=== PATIENT | male | born 1975 | race Caucasian/White ===

== ENCOUNTER 2017-08-25 08:47 | Inpatient (IN) | payer BC ==
[~2017-08-25] VITALS: Ht 175.3 cm; Wt 83.6 kg
[~2017-08-25 08:47] MED LIST: AMLO10TA4 PO; AMLO5TAB2 PO; Hydralazine Hcl PO; LABE100T28 PO; LISI10TA PO; LORA-434 PO; SIMV10TA PO
--- NOTE | 2017-08-25 09:11 | PHYS DOC ---
Past Medical History Past Medical History: Hypertension Past Surgical History: Other Additional Past Surgical Histo: LT HAND Alcohol Use: Heavy Additional Information: 7-8 beers daily Drug Use: None Adult General Chief Complaint Chief Complaint: Palpitations HPI HPI Patient is a 42 year old male who presents with a history and sedation that he can feel his heart beating. He states heart rate ranges from 80s to 90s, no pain , he's had some cough with posttussive emesis. Patient reports he "drinks too much" and that he is a daily drinker. No fevers reported, no abdominal pain, chest pain or shortness of breath. Patient has a history of hypertension any takes medications, his PCP is Dr. Christianson Review of Systems Review of Systems Constitutional: Denies fever or chills [] Eyes: Denies change in visual acuity, redness, or eye pain [] HENT: Denies nasal congestion or sore throat [] Respiratory: Denies shortness of breath [] Cardiovascular: No additional information not addressed in HPI [] GI: Denies abdominal pain, bloody stools or diarrhea [] : Denies dysuria or hematuria [] Musculoskeletal: Denies back pain or joint pain [] Integument: Denies rash or skin lesions [] Neurologic: Denies headache, focal weakness or sensory changes [] Current Medications Current Medications Current Medications Medications (Trade) Dose Ordered Sig/Lance Start Time Stop Time Status Last Admin Dose Admin Dextrose/Sodium Chloride 1,000 ml @ 1,000 mls/hr 1X ONCE 08/25/17 10:30 08/25/17 11:29 08/25/17 10:46 1,000 MLS/HR Diazepam (Valium) 5 mg 1X ONCE 08/25/17 10:30 08/25/17 10:31 DC 08/25/17 10:45 5 MG Ondansetron HCl (Zofran) 4 mg 1X ONCE 08/25/17 10:30 08/25/17 10:31 DC 08/25/17 10:45 4 MG Sodium Chloride 1,000 ml @ 1,000 mls/hr 1X ONCE 08/25/17 09:30 08/25/17 10:29 DC 08/25/17 09:18 1,000 MLS/HR Thiamine HCl 100 mg/Sodium Chloride 51 ml @ 102 mls/hr DAILY 08/25/17 11:00 08/25/17 10:46 102 MLS/HR Allergies Allergies Allergies Coded Allergies Type Severity Reaction Last Updated Verified No Known Drug Allergies 03/11/15 No Physical Exam Physical Exam Constitutional: Well developed, well nourished, no acute distress, non-toxic appearance. appears sunburned HENT: Normocephalic, atraumatic, bilateral external ears normal, oropharynx moist, no oral exudates, nose normal. [] Eyes: PERRLA, EOMI, conjunctiva normal, no discharge. [] Neck: Normal range of motion, no tenderness, supple, no stridor. [] Cardiovascular:Heart rate regular with regular rhythm, no murmur [] Lungs & Thorax: Bilateral breath sounds clear to auscultation [] Abdomen: Bowel sounds normal, soft, no tenderness, no masses, no pulsatile masses. [] Skin: Warm, dry, no erythema, no rash. [] Back: No tenderness, no CVA tenderness. [] Extremities: No tenderness, no cyanosis, no clubbing, ROM intact, no edema. [] Neurologic: Alert and oriented X 3, normal motor function, normal sensory function, no focal deficits noted. [] Current Patient Data Vital Signs Vital Signs Date Time Temp Pulse Resp B/P (MAP) Pulse Ox O2 Delivery O2 Flow Rate FiO2 08/25/17 10:45 83 17 129/76 (93) 97 08/25/17 10:15 Room Air 08/25/17 08:55 98.1 98.1 Lab Values Laboratory Tests Test 08/25/17 09:00 08/25/17 10:06 White Blood Count 10.2 x10^3/uL (4.0-11.0) Red Blood Count 4.78 x10^6/uL (4.30-5.70) Hemoglobin 15.6 g/dL (13.0-17.5) Hematocrit 44.8 % (39.0-53.0) Mean Corpuscular Volume 94 fL (79-100) Mean Corpuscular Hemoglobin 33 pg (25-35) Mean Corpuscular Hemoglobin Concent 35 g/dL (31-37) Red Cell Distribution Width 13.3 % (11.5-14.5) Platelet Count 285 x10^3/uL (140-400) Neutrophils (%) (Auto) 75 % (31-73) H Lymphocytes (%) (Auto) 10 % (24-48) L Monocytes (%) (Auto) 13 % (0-9) H Eosinophils (%) (Auto) 1 % (0-3) Basophils (%) (Auto) 1 % (0-3) Neutrophils # (Auto) 7.6 x10^3uL (1.8-7.7) Lymphocytes # (Auto) 1.1 x10^3/uL (1.0-4.8) Monocytes # (Auto) 1.3 x10^3/uL (0.0-1.1) H Eosinophils # (Auto) 0.1 x10^3/uL (0.0-0.7) Basophils # (Auto) 0.1 x10^3/uL (0.0-0.2) Sodium Level 128 mmol/L (136-145) L Potassium Level 4.4 mmol/L (3.5-5.1) Chloride Level 87 mmol/L (98-107) L Carbon Dioxide Level 19 mmol/L (21-32) L Anion Gap 22 (6-14) H Blood Urea Nitrogen 21 mg/dL (8-26) Creatinine 1.0 mg/dL (0.7-1.3) Estimated GFR (Cockcroft-Gault) 81.9 BUN/Creatinine Ratio 21 (6-20) H Glucose Level 105 mg/dL (70-99) H Calcium Level 9.7 mg/dL (8.5-10.1) Total Bilirubin 1.5 mg/dL (0.2-1.0) H Aspartate Amino Transferase (AST) 174 U/L (15-37) H Alanine Aminotransferase (ALT) 113 U/L (16-63) H Alkaline Phosphatase 82 U/L (46-116) Creatine Kinase 394 U/L (39-308) H Total Protein 9.6 g/dL (6.4-8.2) H Albumin 4.6 g/dL (3.4-5.0) Albumin/Globulin Ratio 0.9 (1.0-1.7) L Urine Collection Type Unknown Urine Color Ginger Urine Clarity Clear Urine pH 6.0 Urine Specific [place] 1.020 Urine Protein Negative mg/dL (NEG-TRACE) Urine Glucose (UA) Negative mg/dL (NEG) Urine Ketones (Stick) >=80 mg/dL (NEG) Urine Blood Negative (NEG) Urine Nitrite Negative (NEG) Urine Bilirubin Small (NEG) Urine Urobilinogen Dipstick 1.0 mg/dL (0.2 mg/dL) Urine Leukocyte Esterase Negative (NEG) Urine RBC 0 /HPF (0-2) Urine WBC Occ /HPF (0-4) Urine Bacteria 0 /HPF (0-FEW) Urine Hyaline Casts Moderate /HPF Urine Mucus Mod /LPF Laboratory Tests 08/25/17 09:00 Laboratory Tests 08/25/17 09:00 EKG EKG 71 beats a minute, sinus, normal axis, normal intervals, no ST elevation or depression, nonischemic T waves, interpreted by me[] Radiology/Procedures Radiology/Procedures Chest x-ray: Indication chest discomfort. PA and lateral views of the chest were obtained and are compared to an examination 03/11/2015. The heart, pulmonary vessels and mediastinum appear normal. The lungs are clear. There is unchanged elevation of the right hemidiaphragm. There has not been a significant appearance of the chest compared to the previous exam. IMPRESSION: No acute or focal process. No significant change Course & Med Decision Making Course & Med Decision Making Pertinent Labs and Imaging studies reviewed. (See chart for details) Patient was given IV fluids, EKG, labs and urinalysis ordered along with chest x -ray. His chemistries consistent with possible AKA, urinalysis pending. A second liter of fluids given D5 normal saline Pt's urine with significant ketones, anion gap, low bicarb, all consistent with AKA. contacted Dr. phelan, accepted for admission for ongoing treatment and monitoring. Placed withdraw prevention orders Dragon Disclaimer Dragon Disclaimer This electronic medical record was generated, in whole or in part, using a voice recognition dictation system. Departure Departure Impression: Primary Impression: Alcoholic ketoacidosis Additional Impressions: Hyponatremia Alcohol abuse Disposition: ADMITTED INPATIENT Admitting Physician: Jo-Ann Phelan Condition: GUARDED Referrals: NO PCP (PCP) Problem Qualifiers PB VÁZQUEZ MD Aug 25, 2017 09:11
--- NOTE | 2017-08-25 09:18 | EKG ---
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
[2017-08-25 09:21] LABS: BASO # 0.1 x10^3/uL (0.0-0.2); BASO % 1 % (0-3); EOS % 1 % (0-3); HEMATOCRIT 44.8 % (39.0-53.0); HEMOGLOBIN 15.6 g/dL (13.0-17.5); LYMPH # 1.1 x10^3/uL (1.0-4.8); LYMPH % 10 % (24-48); MEAN CORPUSCULAR HEMOGLOBIN 33 pg (25-35); MEAN CORPUSCULAR HGB CONC 35 g/dL (31-37); MEAN CORPUSCULAR VOLUME 94 fL (79-100); MONO % 13 % (0-9); NEUT % 75 % (31-73); PLATELET COUNT 285 x10^3/uL (140-400); RED BLOOD COUNT 4.78 x10^6/uL (4.30-5.70); RED CELL DISTRIBUTION WIDTH 13.3 % (11.5-14.5); WHITE BLOOD COUNT 10.2 x10^3/uL (4.0-11.0)
[2017-08-25 09:25] LABS: CALCIUM 9.7 mg/dL (8.5-10.1); GFR 81.9; POTASSIUM 4.4 mmol/L (3.5-5.1)
--- NOTE | 2017-08-25 09:26 | RAD ---
Indication chest discomfort. PA and lateral views of the chest were obtained and are compared to an examination 03/11/2015. The heart, pulmonary vessels and mediastinum appear normal. The lungs are clear. There is unchanged elevation of the right hemidiaphragm. There has not been a significant appearance of the chest compared to the previous exam. IMPRESSION: No acute or focal process. No significant change
[2017-08-25] MEDS ORDERED: IV NORMAL SALINE 1000ML BAG 1,000 ML IV ONE (09:30)
[2017-08-25 09:31] LABS: ALBUMIN 4.6 g/dL (3.4-5.0); ALBUMIN/GLOBULIN RATIO 0.9 (1.0-1.7); TOTAL BILIRUBIN 1.5 mg/dL (0.2-1.0); TOTAL PROTEIN 9.6 g/dL (6.4-8.2)
[2017-08-25] MEDS ORDERED: IV DEXTROSE 5% - 0.9 % NACL 1,000 ML IV ONE (10:30)
[2017-08-25] MEDS ORDERED: ONDANSETRON PF 4 MG/2 ML VIAL. IV ONE (10:30)
[2017-08-25 10:33] LABS: BILIRUBIN,URINE SMALL (NEG); GLUCOSE,URINE NEGATIVE (NEG); NITRITE,URINE NEGATIVE (NEG); PROTEIN,URINE NEGATIVE (NEG-TRACE)
[2017-08-25 10:59] LABS: BACTERIA,URINE 0 /HPF (0-FEW); RBC,URINE 0 /HPF (0-2); WBC,URINE OCC /HPF (0-4)
[2017-08-25] MEDS ORDERED: THIAMINE 100 MG in IV NORMAL SALINE 50ML 50 ML IV SCH (11:00)
[2017-08-25] MEDS ORDERED: LORazepam 1 MG TABLET PO SCH (11:30)
[2017-08-25] MEDS ORDERED: ONDANSETRON PF 4 MG/2 ML VIAL. IV PRN (11:30)
[2017-08-25 13:30] VITALS: BP 142/90
[2017-08-25] MEDS ORDERED: CARV6.252 PO (14:18)
[2017-08-25 15:02] VITALS: BP 138/83
[2017-08-25] MEDS ORDERED: MULTIVIT INFUSN,ADULT 4,VIT K 10 ML, THIAMINE 100 MG, FOLIC ACID 1 MG in IV NORMAL SALI... IV ONE (15:45)
[2017-08-25] MEDS ORDERED: LORazepam 1 MG TABLET PO PRN (15:45)
[2017-08-25] MEDS: amLODIPine BESYLATE 10 MG TABLET PO SCH (16:33)
[2017-08-25] MEDS: LISINOPRIL 10 MG TABLET PO SCH (16:34)
[2017-08-25] MEDS: CARVEDILOL 6.25 MG TABLET. PO SCH (16:34)
--- NOTE | 2017-08-25 16:35 | PDOC1 ---
History and Physical Date of Admission Date of Admission DATE: 08/25/17 TIME: 16:29 Source Source: Chart review, Patient History of Present Illness History of Present Illness Mr. Belcher is a 42 year old male admit with nausea, vomiting 2 days and diarhea. He reports heavy EtOH use. 6 beers/day plus liquor, but it seems like more when talking to him. He feels dependent, and has symptoms whe he is not able to get EtOH, he has recent nausea, and has vomited, diarrhea lst night Today, he feels dry, skin dry and has leg cramps. he wants to cut down ETOH use, and feels he drinks too much, asked for help to get sober PCP is Dr. Christianson Past Medical History Cardiovascular: HTN Pulmonary: No pertinent hx GI: No pertinent hx Heme/Onc: No pertinent hx Hepatobiliary: No pertinent hx Psych: No pertinent hx Musculoskeletal: No pain Rheumatologic: No pertinent hx Infectious disease: No pertinent hx Renal/: No pertinent hx Endocrine: No pertinent hx Past Surgical History Past Surgical History: Other Family History Family History: Alcohol Abuse, Heart Disease Social History ALCOHOL: heavy Drugs: None Current Problem List Problem List Problems Medical Problems: (1) Alcohol abuse Status: Acute (2) Alcoholic ketoacidosis Status: Acute Problems: Current Medications Current Medications Current Medications Sodium Chloride 1,000 ml @ 1,000 mls/hr 1X ONCE IV Last administered on 08/25 09:18; Start 08/25/17 at 09:30; Stop 08/25/17 at 10:29; Status DC Dextrose/Sodium Chloride 1,000 ml @ 1,000 mls/hr 1X ONCE IV Last administered on 08/25/17 10:46; Start 08/25/17 at 10:30; Stop 08/25/17 at 11 :29; Status DC Thiamine HCl 100 mg/Sodium Chloride 51 ml @ 102 mls/hr DAILY IV Last administered on 08/25/17 10:46; Start 08/25/17 at 11:00; Stop 08/25/17 at 15 :46; Status DC Diazepam (Valium) 5 mg 1X ONCE IV Last administered on 08/25/17 10:45; Start 08/25/17 at 10:30; Stop 08/25/17 at 10:31; Status DC Ondansetron HCl (Zofran) 4 mg 1X ONCE IV Last administered on 08/25/17 10:45 ; Start 08/25/17 at 10:30; Stop 08/25/17 at 10:31; Status DC Ondansetron HCl (Zofran) 4 mg PRN Q8HRS PRN IV NAUSEA/VOMITING; Start at 11:30; Stop 08/26/17 at 11:29 Multivitamins 10 ml/Thiamine HCl 100 mg/Folic Acid 1 mg/Sodium Chloride 1,011.2 ml @ 100 mls/ hr DAILY IV ; Start 08/26/17 at 09:00; Stop 08/31/17 at 08:59 Lorazepam (Ativan) 2 mg Q6H PO ; Start 08/25/17 at 11:30; Stop 08/25/17 at 16: 06; Status DC Multivitamins 10 ml/Thiamine HCl 100 mg/Folic Acid 1 mg/Sodium Chloride 1,011.2 ml @ 100 mls/ hr 1X ONCE IV Last administered on 08/25/17 16:27; Start 10/01 at 15:45; Stop 08/26/17 at 01:51 Lorazepam (Ativan) 2 mg PRN Q1HR PRN IV For CIWA 8-14; Start 08/25/17 at 15:45 Lorazepam (Ativan) 4 mg PRN Q1HR PRN IV For CIWA 15 or greater; Start at 15:45 Amlodipine Besylate (Norvasc) 10 mg DAILY PO ; Start 08/25/17 at 16:00 Carvedilol (Coreg) 3.125 mg BIDWMEALS PO ; Start 08/25/17 at 17:00 Labetalol HCl (Trandate) 300 mg BID PO ; Start 08/25/17 at 21:00 Lisinopril (Prinivil) 40 mg DAILY PO ; Start 08/25/17 at 16:00 Lorazepam (Ativan) 2 mg PRN Q6HRS PRN PO ANXIETY / AGITATION Last administered on 08/25/17 16:28; Start 08/25/17 at 15:45 Simvastatin (Zocor) 10 mg QHS PO ; Start 08/25/17 at 21:00 Hydralazine HCl (Apresoline) 50 mg BID PO ; Start 08/25/17 at 21:00 Lorazepam (Ativan) 1 mg BID PO ; Start 08/25/17 at 21:00 Lorazepam (Ativan) 2 mg PRN Q4HRS PRN IV ANXIETY / AGITATION; Start 08/25/17 at 16:00 Lorazepam (Ativan) 2 mg 1X ONCE IV ; Start 08/25/17 at 16:00; Stop 08/25/17 at 16:06; Status DC Active Scripts Active Zocor (Simvastatin) 10 Mg Tablet 10 Mg PO QHS Ativan (Lorazepam) 1 Mg Tablet 2 Mg PO PRN Q6HRS PRN Prinivil (Lisinopril) 10 Mg Tablet 40 Mg PO DAILY Trandate (Labetalol Hcl) 100 Mg Tablet 300 Mg PO BID [Hydralazine Hcl] 50 MG Tablet 50 Mg PO BID Norvasc (Amlodipine Besylate) 10 Mg Tablet 10 Mg PO DAILY Reported Carvedilol 6.25 Mg Tablet 0.5 Tab PO BID Allergies Allergies: Coded Allergies: No Known Drug Allergies (Unverified , 03/11/15) ROS General: No: Chills, Night Sweats, Fatigue, Malaise, Appetite, Other PSYCHOLOGICAL ROS: YES: Anxiety, Sleep disturbances, No: Behavioral Disorder, Concentration difficultie, Decreased libido, Depression, Disorientation, Hallucinations, Hostility, Irritablity, Memory difficulties, Mood Swings, Obsessive thoughts, Other Eyes: No Blurry vision, No Decreased vision, No Double vision, No Dry eyes, No Excessive tearing, No Eye Pain, No Itchy Eyes, No Loss of vision, No Photophobia , No Scotomata, No Uses contacts, No Uses glasses, No Other HEENT: YES: Heacaches Respiratory: No: Cough, Hemoptysis, Orthopnea, Pleuritic Pain, Shortness of breath, SOB with excertion, Sputum Changes, Stridor, Tachypnea, Wheezing, Other Cardiovascular: No Chest Pain, No Palpitations, No Orthopnea, No Paroxysmal Noc. Dyspnea, No Edema, No Lt Headedness, No Other Gastrointestinal: Yes Nausea, Yes Abdominal Pain, Yes Diarrhea Genitourinary: No Dysuria, No Frequency, No Incontinence, No Hematuria, No Retention, No Discharge, No Urgency, No Pain, No Flank Pain, No Other, No , No , No , No , No , No , No Musculoskeletal: No Gait Disturbance, No Joint Pain, No Joint Stiffness, No Joint Swelling, No Muscle Pain, No Muscular Weakness, No Pain In:, No Swelling In:, No Other Neurological: No Behavorial Changes, No Bowel/Bladder ControlChng, No Confusion , No Dizziness, No Gait Disturbance, No Headaches, No Impaired Coord/balance, No Memory Loss, No Numbness/Tingling, No Seizures, No Speech Problems, No Tremors, No Visual Changes, No Weakness, No Other Skin: Yes Dry Skin, No Eczema, No Hair Changes, No Lumps, No Mole Changes, No Mottling, No Nail Changes, No Pruritus, No Rash, No Skin Lesion Changes, No Other, No Acne Physical Exam General: Alert, Cooperative, mild distress HEENT: EOMI, Mucous membr. moist/pink Lungs: Clear to auscultation Heart: S1S2, no murmurs Abdomen: Normal bowel sounds, Soft Rectal Exam: not examined Extremities: No clubbing, No cyanosis Skin: No rashes, No breakdown, Other (poor turgor) Neuro: Sensation intact Psych/Mental Status: Mental status NL, Mood NL Vitals Vitals Vital Signs Date Time Temp Pulse Resp B/P (MAP) Pulse Ox O2 Delivery O2 Flow Rate FiO2 08/25/17 15:02 98.3 83 16 138/83 (101) 97 Room Air 98.3 Labs Labs Laboratory Tests Test 08/25/17 09:00 08/25/17 10:06 White Blood Count 10.2 x10^3/uL (4.0-11.0) Red Blood Count 4.78 x10^6/uL (4.30-5.70) Hemoglobin 15.6 g/dL (13.0-17.5) Hematocrit 44.8 % (39.0-53.0) Mean Corpuscular Volume 94 fL (79-100) Mean Corpuscular Hemoglobin 33 pg (25-35) Mean Corpuscular Hemoglobin Concent 35 g/dL (31-37) Red Cell Distribution Width 13.3 % (11.5-14.5) Platelet Count 285 x10^3/uL (140-400) Neutrophils (%) (Auto) 75 % (31-73) Lymphocytes (%) (Auto) 10 % (24-48) Monocytes (%) (Auto) 13 % (0-9) Eosinophils (%) (Auto) 1 % (0-3) Basophils (%) (Auto) 1 % (0-3) Neutrophils # (Auto) 7.6 x10^3uL (1.8-7.7) Lymphocytes # (Auto) 1.1 x10^3/uL (1.0-4.8) Monocytes # (Auto) 1.3 x10^3/uL (0.0-1.1) Eosinophils # (Auto) 0.1 x10^3/uL (0.0-0.7) Basophils # (Auto) 0.1 x10^3/uL (0.0-0.2) Sodium Level 128 mmol/L (136-145) Potassium Level 4.4 mmol/L (3.5-5.1) Chloride Level 87 mmol/L (98-107) Carbon Dioxide Level 19 mmol/L (21-32) Anion Gap 22 (6-14) Blood Urea Nitrogen 21 mg/dL (8-26) Creatinine 1.0 mg/dL (0.7-1.3) Estimated GFR (Cockcroft-Gault) 81.9 BUN/Creatinine Ratio 21 (6-20) Glucose Level 105 mg/dL (70-99) Calcium Level 9.7 mg/dL (8.5-10.1) Total Bilirubin 1.5 mg/dL (0.2-1.0) Aspartate Amino Transf (AST/SGOT) 174 U/L (15-37) Alanine Aminotransferase (ALT/SGPT) 113 U/L (16-63) Alkaline Phosphatase 82 U/L (46-116) Creatine Kinase 394 U/L (39-308) Total Protein 9.6 g/dL (6.4-8.2) Albumin 4.6 g/dL (3.4-5.0) Albumin/Globulin Ratio 0.9 (1.0-1.7) Urine Collection Type Unknown Urine Color Ginger Urine Clarity Clear Urine pH 6.0 Urine Specific [place] 1.020 Urine Protein Negative mg/dL (NEG-TRACE) Urine Glucose (UA) Negative mg/dL (NEG) Urine Ketones (Stick) >=80 mg/dL (NEG) Urine Blood Negative (NEG) Urine Nitrite Negative (NEG) Urine Bilirubin Small (NEG) Urine Urobilinogen Dipstick 1.0 mg/dL (0.2 mg/dL) Urine Leukocyte Esterase Negative (NEG) Urine RBC 0 /HPF (0-2) Urine WBC Occ /HPF (0-4) Urine Bacteria 0 /HPF (0-FEW) Urine Hyaline Casts Moderate /HPF Urine Mucus Mod /LPF Laboratory Tests Test 08/25/17 09:00 08/25/17 10:06 White Blood Count 10.2 x10^3/uL (4.0-11.0) Red Blood Count 4.78 x10^6/uL (4.30-5.70) Hemoglobin 15.6 g/dL (13.0-17.5) Hematocrit 44.8 % (39.0-53.0) Mean Corpuscular Volume 94 fL (79-100) Mean Corpuscular Hemoglobin 33 pg (25-35) Mean Corpuscular Hemoglobin Concent 35 g/dL (31-37) Red Cell Distribution Width 13.3 % (11.5-14.5) Platelet Count 285 x10^3/uL (140-400) Neutrophils (%) (Auto) 75 % (31-73) Lymphocytes (%) (Auto) 10 % (24-48) Monocytes (%) (Auto) 13 % (0-9) Eosinophils (%) (Auto) 1 % (0-3) Basophils (%) (Auto) 1 % (0-3) Neutrophils # (Auto) 7.6 x10^3uL (1.8-7.7) Lymphocytes # (Auto) 1.1 x10^3/uL (1.0-4.8) Monocytes # (Auto) 1.3 x10^3/uL (0.0-1.1) Eosinophils # (Auto) 0.1 x10^3/uL (0.0-0.7) Basophils # (Auto) 0.1 x10^3/uL (0.0-0.2) Sodium Level 128 mmol/L (136-145) Potassium Level 4.4 mmol/L (3.5-5.1) Chloride Level 87 mmol/L (98-107) Carbon Dioxide Level 19 mmol/L (21-32) Anion Gap 22 (6-14) Blood Urea Nitrogen 21 mg/dL (8-26) Creatinine 1.0 mg/dL (0.7-1.3) Estimated GFR (Cockcroft-Gault) 81.9 BUN/Creatinine Ratio 21 (6-20) Glucose Level 105 mg/dL (70-99) Calcium Level 9.7 mg/dL (8.5-10.1) Total Bilirubin 1.5 mg/dL (0.2-1.0) Aspartate Amino Transf (AST/SGOT) 174 U/L (15-37) Alanine Aminotransferase (ALT/SGPT) 113 U/L (16-63) Alkaline Phosphatase 82 U/L (46-116) Creatine Kinase 394 U/L (39-308) Total Protein 9.6 g/dL (6.4-8.2) Albumin 4.6 g/dL (3.4-5.0) Albumin/Globulin Ratio 0.9 (1.0-1.7) Urine Collection Type Unknown Urine Color Ginger Urine Clarity Clear Urine pH 6.0 Urine Specific [place] 1.020 Urine Protein Negative mg/dL (NEG-TRACE) Urine Glucose (UA) Negative mg/dL (NEG) Urine Ketones (Stick) >=80 mg/dL (NEG) Urine Blood Negative (NEG) Urine Nitrite Negative (NEG) Urine Bilirubin Small (NEG) Urine Urobilinogen Dipstick 1.0 mg/dL (0.2 mg/dL) Urine Leukocyte Esterase Negative (NEG) Urine RBC 0 /HPF (0-2) Urine WBC Occ /HPF (0-4) Urine Bacteria 0 /HPF (0-FEW) Urine Hyaline Casts Moderate /HPF Urine Mucus Mod /LPF VTE Prophylaxis Ordered VTE Prophylaxis Devices: No VTE Pharmacological Prophylaxi: Yes Assessment/Plan Assessment/Plan acute nausea and vomiting and diarrhea, viral enteritis, EtOH abuse gap acidosis, thought to be EtOH only, will check serum level, he reports no aspirin use or other hyponatremia, appears dry, fluid given, will give banana bag, repeat labs SHANNON DOWD MD Aug 25, 2017 16:35
[2017-08-25 16:49] LABS: CALCIUM 8.5 mg/dL (8.5-10.1); CREATININE 1.7 mg/dL (0.7-1.3); GFR 44.4; POTASSIUM 4.2 mmol/L (3.5-5.1)
[2017-08-25] MEDS: ENOXAPARIN 40 MG/0.4 ML SYRINGE. SQ SCH (18:07)
[2017-08-25 19:37] VITALS: BP 128/89
[2017-08-25] MEDS: LABETALOL HCL 100 MG TABLET. PO SCH (21:19)
[2017-08-25] MEDS: LORazepam 1 MG TABLET PO SCH (21:19)
[2017-08-25] MEDS: SIMVASTATIN 10 MG TABLET PO SCH (21:19)
[2017-08-25 22:56] VITALS: BP 106/71
[2017-08-26 03:05] VITALS: BP 135/85
[2017-08-26 05:43] LABS: ALBUMIN 3.6 g/dL (3.4-5.0); CALCIUM 8.6 mg/dL (8.5-10.1); CREATININE 0.7 mg/dL (0.7-1.3); DIRECT BILIRUBIN 0.3 mg/dL (0.0-0.2); GFR 123.7; POTASSIUM 3.8 mmol/L (3.5-5.1); TOTAL BILIRUBIN 0.9 mg/dL (0.2-1.0); TOTAL PROTEIN 7.8 g/dL (6.4-8.2)
[2017-08-26 07:05] VITALS: BP 120/84
--- NOTE | 2017-08-26 07:33 | RAD ---
Right upper quadrant abdominal ultrasound, 08/25/2017: History: Abnormal liver enzymes and bilirubin The gallbladder is within normal limits in size. A small amount of echogenic material without posterior acoustic shadowing is noted in the gallbladder. The appearance is that of sludge. No definite gallstones are seen. The gallbladder wall is not thickened. The common hepatic duct is of normal caliber. The liver demonstrates generalized increased echogenicity, most commonly due to fatty change. It measures 17.8 cm in craniocaudad extent at the level of the right lobe. No hepatic mass is evident. The visualized portions of the pancreas and right kidney are unremarkable. IMPRESSION: 1. Small amount of sludge in the gallbladder. 2. Increased hepatic echogenicity compatible with hepatic steatosis.
[2017-08-26] MEDS: LABETALOL HCL 100 MG TABLET. PO SCH ×2 (09:00→09:47)
--- NOTE | 2017-08-26 09:18 | PDOC ---
PROGRESS NOTES Chief Complaint Chief Complaint N/V/D EtOH abuse ASSESSMENT AND PLAN: 1. ELIJAH: 2/2 GI sx causing dehydration. resolved 2. N/V/D: viral gastroenteritis 3. Hyponatremia: much improved 4. EtOH abuse: on CIWA protocol, Banana bag 5. Hepatitis: EtOH induced. improved 6. Alcoholic ketoacidosis: resolved 7. HTN: well controlled on home meds 8. Prophylaxis: PPI, lovenox History of Present Illness History of Present Illness epigastric tenderness, no nausea Vitals Vitals Vital Signs Date Time Temp Pulse Resp B/P (MAP) Pulse Ox O2 Delivery O2 Flow Rate FiO2 08/26/17 07:05 97.9 88 18 120/84 (96) 97 Room Air 97.9 Physical Exam Physical Exam tremors, no asterixis General: Alert, Cooperative, No acute distress Heart: Regular rate Lungs: Clear Abdomen: Normal bowel sounds, Soft, No tenderness Extremities: No edema Skin: No rashes Labs LABS Laboratory Tests Test 08/25/17 10:06 08/25/17 16:00 08/26/17 03:00 Urine Collection Type Unknown Urine Color Ginger Urine Clarity Clear Urine pH 6.0 Urine Specific [place] 1.020 Urine Protein Negative mg/dL (NEG-TRACE) Urine Glucose (UA) Negative mg/dL (NEG) Urine Ketones (Stick) >=80 mg/dL (NEG) Urine Blood Negative (NEG) Urine Nitrite Negative (NEG) Urine Bilirubin Small (NEG) Urine Urobilinogen Dipstick 1.0 mg/dL (0.2 mg/dL) Urine Leukocyte Esterase Negative (NEG) Urine RBC 0 /HPF (0-2) Urine WBC Occ /HPF (0-4) Urine Bacteria 0 /HPF (0-FEW) Urine Hyaline Casts Moderate /HPF Urine Mucus Mod /LPF Sodium Level 131 mmol/L (136-145) 135 mmol/L (136-145) Potassium Level 4.2 mmol/L (3.5-5.1) 3.8 mmol/L (3.5-5.1) Chloride Level 95 mmol/L (98-107) 99 mmol/L (98-107) Carbon Dioxide Level 23 mmol/L (21-32) 25 mmol/L (21-32) Anion Gap 13 (6-14) 11 (6-14) Blood Urea Nitrogen 23 mg/dL (8-26) 15 mg/dL (8-26) Creatinine 1.7 mg/dL (0.7-1.3) 0.7 mg/dL (0.7-1.3) Estimated GFR (Cockcroft-Gault) 44.4 123.7 Glucose Level 129 mg/dL (70-99) 79 mg/dL (70-99) Calcium Level 8.5 mg/dL (8.5-10.1) 8.6 mg/dL (8.5-10.1) Ethyl Alcohol Level < 10 mg/dL (0-10) Total Bilirubin 0.9 mg/dL (0.2-1.0) Direct Bilirubin 0.3 mg/dL (0.0-0.2) Aspartate Amino Transf (AST/SGOT) 110 U/L (15-37) Alanine Aminotransferase (ALT/SGPT) 84 U/L (16-63) Alkaline Phosphatase 64 U/L (46-116) Total Protein 7.8 g/dL (6.4-8.2) Albumin 3.6 g/dL (3.4-5.0) DANUTA GARCIA MD Aug 26, 2017 09:18
[2017-08-26] MEDS: PANTOPRAZOLE 40 MG TABLET.DR. PO SCH (09:45)
[2017-08-26] MEDS: LORazepam 1 MG TABLET PO SCH ×2 (09:46→20:53)
[2017-08-26] MEDS: amLODIPine BESYLATE 10 MG TABLET PO SCH (09:46)
[2017-08-26] MEDS: MULTIVIT INFUSN,ADULT 4,VIT K 10 ML, THIAMINE 100 MG, FOLIC ACID 1 MG in IV NORMAL SALI... IV SCH (09:46)
[2017-08-26] MEDS: LISINOPRIL 10 MG TABLET PO SCH (09:48)
[2017-08-26] MEDS: CARVEDILOL 6.25 MG TABLET. PO SCH ×2 (09:49→17:35)
[2017-08-26 10:50] VITALS: BP 131/93
--- NOTE | 2017-08-26 12:08 | PDOC2 ---
CONSULT Date of Consult Date of Consult DATE: 08/26/17 TIME: 12:03 Reason for Consult Reason for Consult: ELIJAH AND LOW NA Referring Physician Referring Physician: NILE Identification/Chief Complaint Chief Complaint THIS IS A 42 YR OLD ADMITTED WITH DEHYDRATION AND ELIJAH. NO CKD NOTE. CR IS 1.7 AND NA IS 128. HE HAS HAD A SEVERAL DAY HX OF N/V/D. HE ALSO HAS ETOH ABUSE HX. NO HX OF ANY KIDNEY OR BLADDER SURGERIES HEMATURIA DYSURIA OR FREQUENCY NOTED Problems: Source Source: Chart review, Patient History of Present Illness Reason for Visit: ABOVE Past Medical History Cardiovascular: HTN Pulmonary: No pertinent hx GI: No pertinent hx Heme/Onc: No pertinent hx Hepatobiliary: No pertinent hx Psych: No pertinent hx Musculoskeletal: No pain Rheumatologic: No pertinent hx Infectious disease: No pertinent hx Renal/: No pertinent hx Endocrine: No pertinent hx Past Surgical History Past Surgical History: Other Family History Family History: Alcohol Abuse, Heart Disease Social History ALCOHOL: heavy Drugs: None Lives: with Family Domestic Violence: Neg Current Problem List Problem List Problems Medical Problems: (1) Alcohol abuse Status: Acute (2) Alcoholic ketoacidosis Status: Acute Current Medications Current Medications Current Medications Sodium Chloride 1,000 ml @ 1,000 mls/hr 1X ONCE IV Last administered on 08/25 09:18; Start 08/25/17 at 09:30; Stop 08/25/17 at 10:29; Status DC Dextrose/Sodium Chloride 1,000 ml @ 1,000 mls/hr 1X ONCE IV Last administered on 08/25/17 10:46; Start 08/25/17 at 10:30; Stop 08/25/17 at 11 :29; Status DC Thiamine HCl 100 mg/Sodium Chloride 51 ml @ 102 mls/hr DAILY IV Last administered on 08/25/17 10:46; Start 08/25/17 at 11:00; Stop 08/25/17 at 15 :46; Status DC Diazepam (Valium) 5 mg 1X ONCE IV Last administered on 08/25/17 10:45; Start 08/25/17 at 10:30; Stop 08/25/17 at 10:31; Status DC Ondansetron HCl (Zofran) 4 mg 1X ONCE IV Last administered on 08/25/17 10:45 ; Start 08/25/17 at 10:30; Stop 08/25/17 at 10:31; Status DC Ondansetron HCl (Zofran) 4 mg PRN Q8HRS PRN IV NAUSEA/VOMITING; Start at 11:30; Stop 08/26/17 at 11:29; Status DC Multivitamins 10 ml/Thiamine HCl 100 mg/Folic Acid 1 mg/Sodium Chloride 1,011.2 ml @ 100 mls/ hr DAILY IV Last administered on 08/26/17 09:46; Start at 09:00; Stop 08/31/17 at 08:59 Lorazepam (Ativan) 2 mg Q6H PO ; Start 08/25/17 at 11:30; Stop 08/25/17 at 16: 06; Status DC Multivitamins 10 ml/Thiamine HCl 100 mg/Folic Acid 1 mg/Sodium Chloride 1,011.2 ml @ 100 mls/ hr 1X ONCE IV Last administered on 08/25/17 16:27; Start 10/01 at 15:45; Stop 08/26/17 at 01:51; Status DC Lorazepam (Ativan) 2 mg PRN Q1HR PRN IV For CIWA 8-14 Last administered on 00:47; Start 08/25/17 at 15:45 Lorazepam (Ativan) 4 mg PRN Q1HR PRN IV For CIWA 15 or greater; Start at 15:45 Amlodipine Besylate (Norvasc) 10 mg DAILY PO Last administered on 08/26/17 09 :46; Start 08/25/17 at 16:00 Carvedilol (Coreg) 3.125 mg BIDWMEALS PO Last administered on 08/26/17 09:49 ; Start 08/25/17 at 17:00 Labetalol HCl (Trandate) 300 mg BID PO Last administered on 08/25/17 21:19; Start 08/25/17 at 21:00 Lisinopril (Prinivil) 40 mg DAILY PO Last administered on 08/26/17 09:48; Start 08/25/17 at 16:00 Lorazepam (Ativan) 2 mg PRN Q6HRS PRN PO ANXIETY / AGITATION Last administered on 08/25/17 16:28; Start 08/25/17 at 15:45 Simvastatin (Zocor) 10 mg QHS PO Last administered on 08/25/17 21:19; Start 08/25/17 at 21:00 Hydralazine HCl (Apresoline) 50 mg BID PO ; Start 08/25/17 at 21:00 Lorazepam (Ativan) 1 mg BID PO Last administered on 08/26/17 09:46; Start at 21:00 Lorazepam (Ativan) 2 mg PRN Q4HRS PRN IV ANXIETY / AGITATION Last administered on 08/26/17 05:49; Start 08/25/17 at 16:00 Lorazepam (Ativan) 2 mg 1X ONCE IV ; Start 08/25/17 at 16:00; Stop 08/25/17 at 16:06; Status DC Enoxaparin Sodium (Lovenox Per Pharmacy Prophylaxis Dosing) 1 each PRN DAILY PRN MC SEE COMMENTS; Start 08/25/17 at 16:45 Enoxaparin Sodium (Lovenox 40mg Syringe) 40 mg Q24H SQ Last administered on 18:07; Start 08/25/17 at 17:00 Pantoprazole Sodium (Protonix) 40 mg DAILYAC PO Last administered on 09:45; Start 08/26/17 at 09:15 Active Scripts Active Zocor (Simvastatin) 10 Mg Tablet 10 Mg PO QHS Ativan (Lorazepam) 1 Mg Tablet 2 Mg PO PRN Q6HRS PRN Prinivil (Lisinopril) 10 Mg Tablet 40 Mg PO DAILY Trandate (Labetalol Hcl) 100 Mg Tablet 300 Mg PO BID [Hydralazine Hcl] 50 MG Tablet 50 Mg PO BID Norvasc (Amlodipine Besylate) 10 Mg Tablet 10 Mg PO DAILY Reported Carvedilol 6.25 Mg Tablet 0.5 Tab PO BID Allergies Allergies: Coded Allergies: No Known Drug Allergies (Unverified , 03/11/15) ROS General: YES: Fatigue, Appetite PSYCHOLOGICAL ROS: YES: Anxiety Eyes: Yes Decreased vision Respiratory: YES: Cough Gastrointestinal: Yes Nausea, Yes Vomiting, Yes Diarrhea Genitourinary: YES Other (NOCTURIA) Musculoskeletal: Yes Muscular Weakness Neurological: Yes Weakness Skin: Yes Rash Physical Exam General: Alert, Oriented X3, Cooperative, No acute distress HEENT: Atraumatic, PERRLA Lungs: Clear to auscultation, Normal air movement Heart: Regular rate, Normal S1, Normal S2, No murmurs Abdomen: Normal bowel sounds, Soft, No tenderness, No hepatosplenomegaly Extremities: No clubbing, No cyanosis, No edema Skin: No breakdown Neuro: Normal speech, Cranial nerves 3-12 NL Psych/Mental Status: Mental status NL, Mood NL MUSCULOSKELETAL: No deformity, No swelling Vitals VITALS Vital Signs Date Time Temp Pulse Resp B/P (MAP) Pulse Ox O2 Delivery O2 Flow Rate FiO2 08/26/17 10:50 98.1 82 18 131/93 (106) 95 Room Air 98.1 Labs Labs Laboratory Tests Test 08/25/17 09:00 08/25/17 10:06 08/25/17 16:00 08/26/17 03:00 White Blood Count 10.2 x10^3/uL (4.0-11.0) Red Blood Count 4.78 x10^6/uL (4.30-5.70) Hemoglobin 15.6 g/dL (13.0-17.5) Hematocrit 44.8 % (39.0-53.0) Mean Corpuscular Volume 94 fL (79-100) Mean Corpuscular Hemoglobin 33 pg (25-35) Mean Corpuscular Hemoglobin Concent 35 g/dL (31-37) Red Cell Distribution Width 13.3 % (11.5-14.5) Platelet Count 285 x10^3/uL (140-400) Neutrophils (%) (Auto) 75 % (31-73) Lymphocytes (%) (Auto) 10 % (24-48) Monocytes (%) (Auto) 13 % (0-9) Eosinophils (%) (Auto) 1 % (0-3) Basophils (%) (Auto) 1 % (0-3) Neutrophils # (Auto) 7.6 x10^3uL (1.8-7.7) Lymphocytes # (Auto) 1.1 x10^3/uL (1.0-4.8) Monocytes # (Auto) 1.3 x10^3/uL (0.0-1.1) Eosinophils # (Auto) 0.1 x10^3/uL (0.0-0.7) Basophils # (Auto) 0.1 x10^3/uL (0.0-0.2) Sodium Level 128 mmol/L (136-145) 131 mmol/L (136-145) 135 mmol/L (136-145) Potassium Level 4.4 mmol/L (3.5-5.1) 4.2 mmol/L (3.5-5.1) 3.8 mmol/L (3.5-5.1) Chloride Level 87 mmol/L (98-107) 95 mmol/L (98-107) 99 mmol/L (98-107) Carbon Dioxide Level 19 mmol/L (21-32) 23 mmol/L (21-32) 25 mmol/L (21-32) Anion Gap 22 (6-14) 13 (6-14) 11 (6-14) Blood Urea Nitrogen 21 mg/dL (8-26) 23 mg/dL (8-26) 15 mg/dL (8-26) Creatinine 1.0 mg/dL (0.7-1.3) 1.7 mg/dL (0.7-1.3) 0.7 mg/dL (0.7-1.3) Estimated GFR (Cockcroft-Gault) 81.9 44.4 123.7 BUN/Creatinine Ratio 21 (6-20) Glucose Level 105 mg/dL (70-99) 129 mg/dL (70-99) 79 mg/dL (70-99) Calcium Level 9.7 mg/dL (8.5-10.1) 8.5 mg/dL (8.5-10.1) 8.6 mg/dL (8.5-10.1) Total Bilirubin 1.5 mg/dL (0.2-1.0) 0.9 mg/dL (0.2-1.0) Aspartate Amino Transf (AST/SGOT) 174 U/L (15-37) 110 U/L (15-37) Alanine Aminotransferase (ALT/SGPT) 113 U/L (16-63) 84 U/L (16-63) Alkaline Phosphatase 82 U/L (46-116) 64 U/L (46-116) Creatine Kinase 394 U/L (39-308) Total Protein 9.6 g/dL (6.4-8.2) 7.8 g/dL (6.4-8.2) Albumin 4.6 g/dL (3.4-5.0) 3.6 g/dL (3.4-5.0) Albumin/Globulin Ratio 0.9 (1.0-1.7) Urine Collection Type Unknown Urine Color Ginger Urine Clarity Clear Urine pH 6.0 Urine Specific Salyer 1.020 Urine Protein Negative mg/dL (NEG-TRACE) Urine Glucose (UA) Negative mg/dL (NEG) Urine Ketones (Stick) >=80 mg/dL (NEG) Urine Blood Negative (NEG) Urine Nitrite Negative (NEG) Urine Bilirubin Small (NEG) Urine Urobilinogen Dipstick 1.0 mg/dL (0.2 mg/dL) Urine Leukocyte Esterase Negative (NEG) Urine RBC 0 /HPF (0-2) Urine WBC Occ /HPF (0-4) Urine Bacteria 0 /HPF (0-FEW) Urine Hyaline Casts Moderate /HPF Urine Mucus Mod /LPF Ethyl Alcohol Level < 10 mg/dL (0-10) Direct Bilirubin 0.3 mg/dL (0.0-0.2) Laboratory Tests Test 08/25/17 16:00 08/26/17 03:00 Sodium Level 131 mmol/L (136-145) 135 mmol/L (136-145) Potassium Level 4.2 mmol/L (3.5-5.1) 3.8 mmol/L (3.5-5.1) Chloride Level 95 mmol/L (98-107) 99 mmol/L (98-107) Carbon Dioxide Level 23 mmol/L (21-32) 25 mmol/L (21-32) Anion Gap 13 (6-14) 11 (6-14) Blood Urea Nitrogen 23 mg/dL (8-26) 15 mg/dL (8-26) Creatinine 1.7 mg/dL (0.7-1.3) 0.7 mg/dL (0.7-1.3) Estimated GFR (Cockcroft-Gault) 44.4 123.7 Glucose Level 129 mg/dL (70-99) 79 mg/dL (70-99) Calcium Level 8.5 mg/dL (8.5-10.1) 8.6 mg/dL (8.5-10.1) Ethyl Alcohol Level < 10 mg/dL (0-10) Total Bilirubin 0.9 mg/dL (0.2-1.0) Direct Bilirubin 0.3 mg/dL (0.0-0.2) Aspartate Amino Transf (AST/SGOT) 110 U/L (15-37) Alanine Aminotransferase (ALT/SGPT) 84 U/L (16-63) Alkaline Phosphatase 64 U/L (46-116) Total Protein 7.8 g/dL (6.4-8.2) Albumin 3.6 g/dL (3.4-5.0) Assessment/Plan Assessment/Plan IMP ELIJAH-VASOMOTOR DEHYDRATION HYPONATREMIA ETOH ABUSE GASTROENTERITIS HTN HX PLAN CONT IVF'S ENC ETOH ABSTINENCE ENC PO TOLERATED HOLD HANS-I IF CR NOT BETTER WITH HYDRATION LABS IN AM DANIEL GALVAN MD Aug 26, 2017 12:08
[2017-08-26 14:31] LABS: HEP A IGM ABDY Negative (Negative)
[2017-08-26 14:45] VITALS: BP 124/84
[2017-08-26] MEDS: ENOXAPARIN 40 MG/0.4 ML SYRINGE. SQ SCH (17:34)
[2017-08-26 19:00] VITALS: BP 134/93
[2017-08-26] MEDS: SIMVASTATIN 10 MG TABLET PO SCH (20:53)
[2017-08-26 23:00] VITALS: BP 138/97
[2017-08-27 03:00] VITALS: BP 135/92
[2017-08-27 05:53] LABS: ALBUMIN 3.6 g/dL (3.4-5.0); ALBUMIN/GLOBULIN RATIO 0.8 (1.0-1.7); CREATININE 0.7 mg/dL (0.7-1.3); GFR 123.7; POTASSIUM 3.4 mmol/L (3.5-5.1); TOTAL BILIRUBIN 0.8 mg/dL (0.2-1.0)
[2017-08-27 05:58] LABS: BASO # 0.1 x10^3/uL (0.0-0.2); BASO % 2 % (0-3); EOS % 2 % (0-3); HEMATOCRIT 40.6 % (39.0-53.0); HEMOGLOBIN 13.9 g/dL (13.0-17.5); LYMPH # 1.2 x10^3/uL (1.0-4.8); LYMPH % 20 % (24-48); MEAN CORPUSCULAR HEMOGLOBIN 33 pg (25-35); MEAN CORPUSCULAR HGB CONC 34 g/dL (31-37); MEAN CORPUSCULAR VOLUME 95 fL (79-100); MONO % 12 % (0-9); NEUT % 64 % (31-73); PLATELET COUNT 182 x10^3/uL (140-400); RED BLOOD COUNT 4.26 x10^6/uL (4.30-5.70); RED CELL DISTRIBUTION WIDTH 13.3 % (11.5-14.5); WHITE BLOOD COUNT 6.3 x10^3/uL (4.0-11.0)
[2017-08-27 07:00] VITALS: BP 153/104
[2017-08-27] MEDS: PANTOPRAZOLE 40 MG TABLET.DR. PO SCH (08:21)
[2017-08-27] MEDS: LISINOPRIL 10 MG TABLET PO SCH (08:21)
[2017-08-27] MEDS: LORazepam 1 MG TABLET PO SCH (08:22)
[2017-08-27] MEDS: amLODIPine BESYLATE 10 MG TABLET PO SCH (08:22)
[2017-08-27] MEDS: MULTIVIT INFUSN,ADULT 4,VIT K 10 ML, THIAMINE 100 MG, FOLIC ACID 1 MG in IV NORMAL SALI... IV SCH (08:23)
[2017-08-27] MEDS: CARVEDILOL 6.25 MG TABLET. PO SCH (08:23)
[2017-08-27 11:00] VITALS: BP 136/89
--- NOTE | 2017-08-27 11:34 | PDOC ---
Renal-Progress Notes Subjective Notes Notes NONE History of Present Illness Hx of present illness NO CHANGE Vitals Vitals Vital Signs Date Time Temp Pulse Resp B/P (MAP) Pulse Ox O2 Delivery O2 Flow Rate FiO2 08/27/17 11:00 98.4 92 18 136/89 (105) 98 Room Air 98.4 Weight Weight [ ] Labs Labs Laboratory Tests Test 08/27/17 04:00 White Blood Count 6.3 x10^3/uL (4.0-11.0) Red Blood Count 4.26 x10^6/uL (4.30-5.70) Hemoglobin 13.9 g/dL (13.0-17.5) Hematocrit 40.6 % (39.0-53.0) Mean Corpuscular Volume 95 fL (79-100) Mean Corpuscular Hemoglobin 33 pg (25-35) Mean Corpuscular Hemoglobin Concent 34 g/dL (31-37) Red Cell Distribution Width 13.3 % (11.5-14.5) Platelet Count 182 x10^3/uL (140-400) Neutrophils (%) (Auto) 64 % (31-73) Lymphocytes (%) (Auto) 20 % (24-48) Monocytes (%) (Auto) 12 % (0-9) Eosinophils (%) (Auto) 2 % (0-3) Basophils (%) (Auto) 2 % (0-3) Neutrophils # (Auto) 4.1 x10^3uL (1.8-7.7) Lymphocytes # (Auto) 1.2 x10^3/uL (1.0-4.8) Monocytes # (Auto) 0.7 x10^3/uL (0.0-1.1) Eosinophils # (Auto) 0.1 x10^3/uL (0.0-0.7) Basophils # (Auto) 0.1 x10^3/uL (0.0-0.2) Sodium Level 139 mmol/L (136-145) Potassium Level 3.4 mmol/L (3.5-5.1) Chloride Level 100 mmol/L (98-107) Carbon Dioxide Level 29 mmol/L (21-32) Anion Gap 10 (6-14) Blood Urea Nitrogen 10 mg/dL (8-26) Creatinine 0.7 mg/dL (0.7-1.3) Estimated GFR (Cockcroft-Gault) 123.7 BUN/Creatinine Ratio 14 (6-20) Glucose Level 89 mg/dL (70-99) Calcium Level 9.0 mg/dL (8.5-10.1) Total Bilirubin 0.8 mg/dL (0.2-1.0) Aspartate Amino Transf (AST/SGOT) 142 U/L (15-37) Alanine Aminotransferase (ALT/SGPT) 96 U/L (16-63) Alkaline Phosphatase 68 U/L (46-116) Total Protein 8.0 g/dL (6.4-8.2) Albumin 3.6 g/dL (3.4-5.0) Albumin/Globulin Ratio 0.8 (1.0-1.7) Review of Systems Constitutional: yes: no symptom reported Ears/Nose/Throat: Yes: no symptom reported Eyes: Yes: no symptom reported Pulmonary: Yes no symptom reported Cardiovascular: Yes no symptom reported Gastrointestional: Yes: no symptom reported Genitourinary: Yes: no symptom reported Musculoskeletal: Yes: no symptom reported Skin: Yes no symptom reported Psychiatric/Neurological: Yes: no symptom reported Endocrine: Yes: no symptom reported Physical Exam General Appearance: no apparent distress Skin: warm Respiratory: bilateral CTA Heart: S1S2, no thrills Abdomen: soft, bowel sounds present Genitourinary: bladder flat Neurology: alert Musculoskeletal: No pain Assessment Assessment IMP DEHYDRATION ELIJAH-RESOLVED LOW K PLAN STOP IVF'S REPLACE K WILL SIGN OFF DANIEL GALVAN MD Aug 27, 2017 11:34
[2017-08-27] MEDS ORDERED: POTASSIUM CHLORIDE 20 MEQ TABLET.ER. PO ONE (11:45)
--- NOTE | 2017-08-27 18:27 | DS ---
DATE OF DISCHARGE: 08/27/2017 CHIEF COMPLAINT: Nausea, vomiting, diarrhea, alcohol abuse. HOSPITAL COURSE: The patient is a 42-year-old gentleman who presented to the Emergency Room with nausea, vomiting, mild diarrhea and alcohol intoxication. He was found with acute kidney injury as well as electrolyte derangements in the Emergency Room and admitted for further management. He was started on IV fluids and received a banana bag for his alcohol abuse. Started on CIWA protocol as well. He quickly resolved with renal issues as well as gastroenteritis. For alcohol abuse, he was kept for 3 days, required minimal Ativan and after 16 hours of no Ativan requirement, was discharged to home. PHYSICAL EXAMINATION: VITAL SIGNS: Blood pressure of 120/84, heart rate of 88, respiratory rate is 18. He is afebrile. GENERAL: Alert and oriented, no acute distress. LUNGS: Clear. HEART: Regular rate and rhythm. ABDOMEN: Positive bowel sounds, soft, nontender. EXTREMITIES: Show no edema. DISCHARGE DIAGNOSES: Nausea, vomiting, diarrhea, alcohol abuse. DISCHARGE DISPOSITION: To home. DISCHARGE CONDITION: Improved. DISCHARGE MEDICATIONS: Please refer to MAR. DISCHARGE INSTRUCTIONS: The patient will follow up with PCP, should abstain from alcohol. DANUTA GARCIA MD DR: ZAID/nts JOB#: [id number] / [id number] RODNEY Robert MD MTDD
== END 2017-08-27 14:52 | disposition home or self-care (01) | DRG 392 ==
LOC: ER 08:47 → 6 SOUTH 11:05
PROVIDERS: ADMIT Internal Medicine; ATTEND Internal Medicine
DX: A08.4 Viral intestinal infection, unspecified (principal); N17.9 Acute kidney failure, unspecified; E87.2 Acidosis; E87.1 Hypo-osmolality and hyponatremia; K75.9 Inflammatory liver disease, unspecified; E86.0 Dehydration; E86.1 Hypovolemia; F10.129 Alcohol abuse with intoxication, unspecified; I10 Essential (primary) hypertension; R11.10 Vomiting, unspecified
CPT/HCPCS: 36415; 71020; 76705; 80048; 80053; 80074; 80076; 81001; 82550; 85025; 93005; 96361; 96365; 96375; G0480; J1650; J2060; J2405; J3360; J7030; J7042; 99285-25